=== PATIENT | male | born 1995 | race Hispanic/Latino ===

== ENCOUNTER 2021-09-04 17:58 | Emergency (ER) | payer OTHER, MEDICAID, SELFPAY ==
[2021-09-04 18:05] VITALS: BP 133/85; PULSE 92; RESP 20; TEMP 36.7; O2SAT 98; BMI 41.5
[2021-09-04] MEDS: DEXAMETHASONE 10 MG/ML VIAL 12 MG PO (19:26)
[2021-09-04] MEDS: KETOROLAC 30 MG/ML VIAL 15 MG IM (19:27)
[2021-09-04 19:35] VITALS: BP 133/73; PULSE 83; RESP 18; O2SAT 98
--- NOTE | 2021-09-04 20:32 | ED.URI ---
HPI - URI/Sore Throat <VICKI Dobbs - Last Filed: 09/04/21 20:37> General Chief Complaint: Upper Respiratory Symptoms Stated Complaint: thinks strep throat Time Seen by Provider: 09/04/21 19:10 Source: patient Mode of arrival: Ambulatory History of Present Illness HPI Narrative: 25-year-old male presents to the emergency department for sore throat, and tonsillar adenopathy which he states has been worsening for the last 4 days. He denies any fever, states he has a history of strep throat, complains of sore tonsils and difficulty swallowing anything due to the pain. He states he has been using ibuprofen, has a history of reflux, has been using throat lozenges which have been helpful. He denies any abdominal pain, dizziness, but does endorse having chills. He denies any vomiting. Patient states that he has had bad heartburn for approximately 2 weeks. Related Data Previous Rx's Medication Instructions Recorded benzocaine 15 mg-menthol 20 mg 1 nancie MUCOUS MEMBRANE Q2-4H PRN 09/04/21 lozenges (Cepacol Instamax Sore #16 ea Throat) Allergies Allergy/AdvReac Type Severity Reaction Status Date / Time No Known Drug Allergies Allergy Verified 09/04/21 18:05 Review of Systems <VICKI Dobbs - Last Filed: 09/04/21 20:37> Review of Systems Narrative: General: denies fever, chills, malaise, sweats, fatigue Head/Neck: denies headache, neck pain, dizziness Throat: Endorses sore throat, swollen tonsils, pain with all swallowing Eyes: denies visual changes, eye pain Cardio: denies chest pain, palpitations, edema Respiratory: denies dyspnea, cough, orthopnea GI: Denies abdominal pain, nausea, vomiting, or diarrhea : denies dysuria, hematuria, urinary retention, frequency or incontinence MSK: denies joint pain, muscle weakness Skin: denies rash, itching, skin lesions or other Neuro: denies numbness, tingling Patient History <VICKI Dobbs - Last Filed: 09/04/21 20:37> Social History Smoking Status: Never smoker Smoking Status: Never smoker Substance Use Type: does not use Exam <VICKI Dobbs - Last Filed: 09/04/21 20:37> Narrative Exam Narrative: Independently reviewed vitals signs and nursing notes. General: cooperative, comfortable, in no acute distress, well developed and well groomed Head: atraumatic, symmetrical facial expressions Neck: supple, atraumatic, without lymphadenopathy. Eyes: pupils equal round and reactive, EOMI, conjunctiva normal Nose: nares patent, no rhinorrhea Mouth/Throat: uvula midline without edema, moist mucus membranes, posterior pharynx is mildly erythematous, tonsillar adenopathy is 3+, no exudate present, no odorous breath. Throat culture obtained, strep a test is negative Cardiovascular: regular rate and rhythm, no peripheral edema, warm extremities Respiratory: normal effort, able to speak in complete sentences, no audible wheezing, stridor, or rales. No retractions or tachypnea. GI: abdomen soft, nontender to palpation, nondistended, no masses, no exquisite tenderness with exam, without guarding or rebound. MSK: moves all extremities, ambulatory w/steady gait, neurovascularly intact, no weakness Skin: brisk capillary refill, no rash, no erythema Neuro: normal speech and cognition, A&O x3, normal tone Psych: mental status is grossly normal, congruent mood, normal affect, pleasant and cooperative Initial Vital Signs Initial Vital Signs: Vital Signs Temperature 98.1 F 09/04/21 18:05 Pulse Rate 92 H 09/04/21 18:05 Respiratory Rate 20 09/04/21 18:05 Blood Pressure 133/85 09/04/21 18:05 Pulse Oximetry 98 09/04/21 18:05 <Billie Harrison DO - Last Filed: 09/05/21 09:45> Initial Vital Signs Initial Vital Signs: Vital Signs Temperature 98.1 F 09/04/21 18:05 Pulse Rate 92 H 09/04/21 18:05 Respiratory Rate 20 09/04/21 18:05 Blood Pressure 133/85 09/04/21 18:05 Pulse Oximetry 98 09/04/21 18:05 Course <VICKI Dobbs - Last Filed: 09/04/21 20:37> Orders Ordered: Discontinued Medications Dexamethasone (Dexamethasone 10 Mg/Ml Vial) 12 mg PO NOW ONE Stop: 09/04/21 19:15 Last Admin: 09/04/21 19:26 Dose: 12 mg Documented by: DEBBIE Ketorolac Tromethamine (Ketorolac 30 Mg/Ml Vial) 15 mg IM NOW ONE Stop: 09/04/21 19:15 Last Admin: 09/04/21 19:27 Dose: 15 mg Documented by: DEBBIE Vital Signs Vital signs: Vital Signs - 8 hr 09/04/21 18:05 09/04/21 19:35 Temperature 98.1 F Pulse Rate 92 H 83 Respiratory Rate 20 18 Blood Pressure 133/85 133/73 Pulse Oximetry 98 98 <Billie Harrison DO - Last Filed: 09/05/21 09:45> Orders Ordered: Discontinued Medications Dexamethasone (Dexamethasone 10 Mg/Ml Vial) 12 mg PO NOW ONE Stop: 09/04/21 19:15 Last Admin: 09/04/21 19:26 Dose: 12 mg Documented by: DEBBIE Ketorolac Tromethamine (Ketorolac 30 Mg/Ml Vial) 15 mg IM NOW ONE Stop: 09/04/21 19:15 Last Admin: 09/04/21 19:27 Dose: 15 mg Documented by: DEBBIE Vital Signs Vital signs: Vital Signs - 8 hr 09/04/21 18:05 09/04/21 19:35 Temperature 98.1 F Pulse Rate 92 H 83 Respiratory Rate 20 18 Blood Pressure 133/85 133/73 Pulse Oximetry 98 98 MDM - URI/Sore Throat <VICKI Dobbs - Last Filed: 09/04/21 20:37> Lab Data Labs: Point of Care Testing Rapid Strep A Negative MDM Narrative Medical decision making narrative: This is a 25-year-old male who presents to the emergency department with 4 days of throat pain, states he has a history of strep throat in the past, has been taking ibuprofen and throat lozenges for his pain. He states he also has a history of reflux, states his reflux has been bad for the last 2 weeks, states he has tried omeprazole in the past. His rapid strep a test today was negative, throat culture obtained and is pending. Discussed this could be erosive esophagitis from his reflux, encouraged patient to start taking omeprazole daily with for any medications, and to take a dose tonight when he gets home. He was given Decadron in the emergency department and a shot of Toradol IM. He states that this is helpful for his pain, he was also given contact information for Dr. Fernandez with ENT for tonsillectomy in the future. He states that it is difficult to swallow, he missed 3 days of school this week due to this. He has had chills without a fever, denies any abdominal pain and denies any rash. Patient is appropriate and amenable to discharge home. Vital signs are stable on repeat examination is unremarkable. Patient has been informed of results. Patient has been given strict return to ER precautions for any new or worsening symptoms. Patient understands to follow up closely with outpatient providers as instructed. Patient understands plan and agrees to discharge home. All questions and concerns answered at this time. <Billie Harrison, - Last Filed: 09/05/21 09:45> Lab Data Labs: Point of Care Testing Rapid Strep A Negative Discharge Plan Departure Patient Disposition: Home Clinical Impression: Acute tonsillitis Qualifiers: Pharyngitis/tonsillitis etiology: unspecified etiology Qualified Code(s): J03.90 - Acute tonsillitis, unspecified Instructions: Sore Throat, Tonsillectomy-Adult, DI for Pharyngitis/Tonsillopharyngitis -- Adult Activity Restrictions/Additional Instructions: *You have been diagnosed with tonsillitis. This could be bacterial or viral, the culture will tell us if you need antibiotics or not. I hope that you feel better after the steroid and anti-inflammatory. Please take ibuprofen starting tomorrow every 6 hours as needed for your pain with food and water, continue with clear liquids and whatever feels okay to go down your throat, I have called in some more throat lozenges to [facility] and we will call in antibiotics if you need them in 1 or 2 days when your culture finalizes. Please follow-up with Dr. Fernandez for tonsillectomy. Popsicles are your friend. I hope that you feel better soon, please return for any worsening of your symptoms to the emergency department. *What to do: *Please continue to take your regular medications as directed. [ x] New medication prescriptions sent to your pharmacy: [[facility] ] [ ] New medication written as a paper prescription [ ] No new medications given *Please follow up with your primary care provider in 2-3 days, call for an appointment. Let them know you were seen in the Emergency Department and that we asked that you be seen for follow-up. We will electronically transmit a record of today's note if your PCP is in our system *If you do not have a primary care provider please contact [phone] to establish care with one of the [facility] primary care providers. *Return to Emergency Department if you should have any new, worsening or concerning symptoms, such as [fever greater than 101F, chills, worsening pain, persistent vomiting or other bothersome symptoms] Prescriptions: New Cepacol Instamax Sore Throat 15-20 mg lozenge 1 nancie mucous membrane Q2-4H PRN (Reason: sore throat) Qty: 16 0RF Referrals: Cristian Fernandez MD [Physician] - 5-7 days Stand Alone Forms: School Release Note <Billie Harrison DO - Last Filed: 09/05/21 09:45> Cosign ED Attending Josephature Attestation: I was immediately available in the department for consultation. Documentation has been reviewed. I agree with assessment and plan.
== END 2021-09-04 19:42 | disposition home or self-care (01) ==
PROVIDERS: Emergency Provider Nurse Practitioner Critical Care Medicine
DX: J03.90 Acute tonsillitis, unspecified (principal)
CPT/HCPCS: 87070; 87880; 96372; 99283; J1100; J1885